=== PATIENT | male | born 1980 | race Caucasian/White ===

== ENCOUNTER → 2018-12-05 22:35 | Outpatient (CLI) | payer BC, SELFPAY ==
[2018-12-05 18:12] VITALS: BMI 26.7
[2018-12-05 23:00] LABS: Absolute Lymphocyte Count 2.02 X10^3/uL (0.83-4.51); Absolute Neutrophil Count 3.3 X10^3/uL (2.0-7.7); Basophil# 0.08 X10^3/uL; Basophil% 1.2 % (0-1); Eosinophil# 0.51 X10^3/uL; Eosinophils% 7.8 % (0-5); Hematocrit 43.2 % (40-54); Hemoglobin 13.9 g/dL (13.0-16.5); Lymphocyte # 2.02 X10^3/ul (4.0); Lymphocyte % 31.1 % (19-41); Mean Corp Hgb Conc 32.2 g/dL (32-36); Mean Corpuscular Hgb 30.2 pg (27.0-32.0); Mean Corpuscular Volume 93.7 fL (80-94); Mean Platelet Vol. 10.9 fl (6.2-12.0); Monocyte# 0.62 X10^3/uL; Monocyte% 9.5 % (0-10); NRBC Flagged by Analyzer 0 % (0-5); Neutrophil # 3.26 X10^3/uL (2.7-7.7); Neutrophil % 50.2 % (47-70); Platelet Count 234 K/mm3 (150-450); RBC Distribution Width CV 12.1 % (11.6-14.6); Red Blood Count 4.61 M/mm3 (4.6-6.2); White Blood Count 6.5 K/mm3 (4.4-11.0)
[2018-12-05 23:21] LABS: ALB/GLOB Ratio 1.1 RATIO (0.9-2.4); AST(SGOT) 28 U/L (15-37); Alanine Aminotransfer ALT/SGPT 36 U/L (16-61); Albumin, Serum 3.8 g/dL (3.2-5.0); Alkaline Phosphatase 57 U/L (45-117); Anion Gap 5 (5-15); BUN 18 mg/dL (7-18); BUN/Creat Ratio 15.7 RATIO (10-20); Calcium,Total 8.5 mg/dL (8.5-10.1); Chloride 106 mmol/L (98-107); Cholesterol 137 mg/dL (200); Creatinine, Serum 1.15 mg/dL (0.70-1.30); EST Glomerular Filtration Rate 75 mL/min (>60); Est Glom Filt Rate - Afr Amer 90 mL/min (>60); Globulin 3.5 g/dL (2.2-4.2); Glucose 100 mg/dL (74-106); High Density Lipoprotein 57 mg/dL; Potassium 4.3 mmol/L (3.5-5.1); Protein, Total 7.3 g/dL (6.4-8.2); Sodium Level 140 mmol/L (136-145); Triglycerides 72 mg/dL; Very Low Density Lipoprotein 14 mg/dL (5-40)
== END ==
PROVIDERS: Family Provider Family Medicine; PCP Family Medicine; Referring Provider Nurse Practitioner; Visit Provider Nurse Practitioner
DX: Z00.00 Encounter for general adult medical examination without abnormal findings (principal)
CPT/HCPCS: 80053; 80061; 85025

== ENCOUNTER 2019-11-18 07:33 | Day surgery (SDC) | payer BC, SELFPAY ==
[2019-11-12 13:17] VITALS: BMI 26.7
--- NOTE | 2019-11-12 14:55 | EKG12_ITS ---
Test Reason : PRE OP Blood Pressure : / mmHG Vent. Rate : 068 BPM Atrial Rate : 068 BPM P-R Int : 174 ms QRS Dur : 106 ms QT Int : 408 ms P-R-T Axes : 073 064 014 degrees QTc Int : 433 ms Normal sinus rhythm with sinus arrhythmia Normal ECG Confirmed by ARIANNA AGUILAR, DEJAH ([id number]), news copy editor DEMI MORALES ([id number]) on 11/13/2019 8:50:40 AM Referred By: Avinash Bryant Confirmed By:DEJAH KELLER MD
[2019-11-12 15:09] LABS: Hematocrit 41.3 % (40-54); Hemoglobin 13.8 g/dL (13.0-16.5); Mean Corp Hgb Conc 33.4 g/dL (32-36); Mean Corpuscular Hgb 31.1 pg (27.0-32.0); Mean Platelet Vol. 9.7 fl (6.2-12.0); Platelet Count 227 K/mm3 (150-450); RBC Distribution Width CV 11.9 % (11.6-14.6); Red Blood Count 4.44 M/mm3 (4.6-6.2); White Blood Count 6.4 K/mm3 (4.4-11.0)
[2019-11-12 15:24] LABS: Anion Gap 1 (5-15); BUN 20 mg/dL (7-18); BUN/Creat Ratio 18.2 RATIO (10-20); Calcium,Total 8.4 mg/dL (8.5-10.1); Chloride 106 mmol/L (98-107); EST Glomerular Filtration Rate 78 mL/min (>60); Est Glom Filt Rate - Afr Amer 95 mL/min (>60); Glucose 92 mg/dL (74-106); Sodium Level 139 mmol/L (136-145)
[2019-11-18] VITALS (9 sets, daily range): BP systolic 119–141; BP diastolic 65–94; PULSE 55–75; RESP 16–18; TEMP 36.2–37.5; O2SAT 92–100; BMI 26.5
[2019-11-18] MEDS: Lactated Ringers 1,000 ML 100 ML IV ×2 (08:30→10:45)
--- NOTE | 2019-11-18 08:34 | PCM.HP.BLA ---
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 Required: No Accompanied by: Is patient in pain?: No Allergies No Known Allergies Allergy (Verified 11/12/19 13:16) Medications escitalopram oxalate 10 mg tablet 10 mg PO DAILY #90 tab 12/05/18 [Rx Confirmed 11/12/19] imiquimod 5 % topical cream packet 1 applic TOPICAL .3xw 112 Days #24 ea 10/07/19 [Rx Confirmed 11/12/19] FOR[facility]LY [facility] Medical History Umbilical pain (Acute) Umbilical hernia with obstruction (Acute) Sebaceous cyst (Acute) Wellness examination (Acute) Depression with anxiety (Acute) Umbilical pain (Acute) Surgical History Salivary duct obstruction (Acute) [place] teeth removed (Acute) Family History (Updated 11/12/19 @ 13:13 by Cris Tejada) Mother Heart disease Arthritis Other Hypertension Social History (Updated 11/12/19 @ 14:[address] Avinash Bryant MD) Smoking Status: Never smoker alcohol intake: current alcohol intake frequency: a few times a week substance use type: does not use HPI HPI HPI: RITIKA BABCOCK, is a 39 M who presents to the office today for surgical consultation regarding an umbilical hernia. The patient is referred by Claudette Lama NP?C and a written copy of my surgical consult recommendations will be returned to her. 39-year-old gentleman. 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 His other life involves significant amount of physical activity. He lifts weights and runs. He is very physically active. He has had some problems with some sharp stabbing pain at the umbilicus with some radiation inferiorly. He clearly has a palpable bulge and an umbilical hernia. This likely can be attributed from his heavy weightlifting routine. At the [facility] on October 11, [address] scan of the abdomen performed. A small fat-containing umbilical hernia was identified. The appendix was not normal being prominent caliber measuring 8 mm throughout its course but there is no surrounding inflammation. Etiology to the enlarged appendix was not offered. The patient denies personal or family history of colon polyps or colon cancer or appendicitis. His mother did have cholecystitis. He has not had a change in bowel habits. He otherwise enjoys very good health. HPI HPI HPI: RITIKA BABCOCK, is a 39 M who presents to the office today for ROS General General: No weight change, appetite, fatigue, colon cancer, breast cancer or weakness HEENT HEENT: No difficulty swallowing, eye injury, eye surgery, swollen glands or hoarseness Endo Endocrine: No thyroid disease, diabetes mellitus, thyroid cancer, Hair loss, heat intolerance or cold intolerance Skin Skin: No rash or changing moles Breast Breast: No left breast lump, right breast lump, nipple discharge, breast pain, abnormal mammogram, abnormal US or breast enlargement Musc Musculoskeletal: No back problems, arthritis, rheumatoid arthritis, gout or joint pain Cardio Cardiovascular: No murmur, pacemaker, heart disease, atrial fibrillation, high blood pressure, heart attack, heart stent, palpitations, shortness of breat with exertion or chest pain Psych Psychiatric: Yes depression and anxiety; no hearing voices Resp Respiratory: No shortness of breath, No sleep apnea, No cough, No COPD, No asthma, No emphysema, No wheezing Gastro Gastrointestinal: Yes abdominal pain, No nausea or vomiting, No diarrhea, No constipation, No blood in stool, No acid reflux, No hemorrhoids, No ulcers, No gallbladder problem, No black,tarry stools Jose Hematologic: No blood thinners, No blood disorders, No bleeding, No anemia, No blood clots Neuro Neurologic: No system reviewed and no additional complaints, except as docu, No as per HPI, No abnormal walking, No abnormal hearing, No abnormal movements, No abnormal speech, No behavioral changes, No burning sensations, No confusion, No seizure-like activity, No unsteadiness, No dizziness, No localized weakness, No frequent falls, No headache(s), No lack of coordination, No loss of vision, No memory loss, No numbness, No other visual disturbances, No radiating pain, No restless legs, No sensory deficit, No fainting, No tingling, No tremor(s), No weakness, No other Exam Const General: cooperative, healthy appearing, comfortable, no acute distress Nutritional Appearance: average body habitus Orientation: alert, awake HENMA Head: normal to inspection Eyes General: appearance normal, both eyes and all related structures Chest Breast Palpation: No nipple discharge Resp Effort & Inspection: normal respiratory effort Auscultation: clear to auscultation bilaterally Cardio Rate: regular rate Rhythm: regular rhythm Heart Sounds: no murmurs GI Palpation: soft, no hepatosplenomegaly Auscultation: normal bowel sounds Other: Superior aspect the knee like is there is a moderate sized incarcerated umbilical hernia with fibrofatty tissue. Slightly tender to deep palpation. The remainder the abdomen is soft and nontender. Other: Testicles are descended without mass. Bilateral inguinal rings are closed no inguinal defects noted. Skin General: no rashes or lesions noted Neuro Cognition: normal cognition Extrem General: no calf tenderness Psych Affect: normal affect Assessment & Plan Problems 1. 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 Umbilical hernia with obstruction K42.0 Plan Incarcerated umbilical hernia. Enlargement of the appendix with otherwise undefined diagnosis. Very physically active gentleman. Had an extensive discussion with the patient his . We discussed the potential for doing a laparoscopic appendectomy and if approach cleanly then an umbilical herniorrhaphy placed in the mesh in the preperitoneal plane utilizing a Ventralex mesh. Feel that this would likely give the patient's absolute best outcome and long-term outcome. It is not clear to me that the appendix might possibly represent a slowly evolving mucocele though it does not clearly appear like that at the moment. He does not have any right lower quadrant symptoms to suggest acute appendicitis. He does not provide me with symptoms that would suggest more of a chronic appendicitis. I have personally reviewed the CT scan however and the appendix does appear to be generally enlarged. We discussed leaving the appendix and awaiting symptoms. I then discussed with him that having just repaired his umbilical hernia that potential surgeon would need to find a different area to approach it laparoscopically simply technically making the procedure more complicated. After discussion of benefits risk complications alternatives. I have elected proceed with a laparoscopic appendectomy. Is anticipated this will be proceeded in the absolute cleanness method possible. If this can be achieved and all things brought up through the trochars keeping the skin protected then anticipate likely a ventralex mesh placement in the preperitoneal plane. Then completing it with a suture repair. He is had an opportunity to ask and have questions answered. He is aware that there are no guarantees of success. He has had an opportunity to ask and have questions answered. I very much appreciate the kind opportunity of assisting with his surgical care. We will schedule and proceed at his discretion. Cc: ANASTASIA Gary M.D., F.A.C.S. Coding Level of Care Code 71193 Diagnoses Appendix disease K38.9 Umbilical hernia with obstruction K42.0 I have re-examined the patient. There are no clinical changes since date of exam. Procedure Criteria Procedure Type: Elective COVID Risk Discussion: The surgeon/proceduralist and patient have discussed in detail the risk of exposure to and/or potential harm posed by the COVID-19 virus with having a surgery/procedure at this time versus the risk of delaying the surgery/procedure. It is not possible to know either the risk of delaying the surgery or procedure or chance of getting an infection with perfect accuracy, but a joint decision was made between the patient and the surgeon/proceduralist to proceed at this time with the scheduled surgery/procedure as indicated on the consent form.
--- NOTE | 2019-11-18 09:08 | PCM.DC.GS ---
Discharge Diet: Light diet - advance as tolerated - if you have questions about your diet instructions, please talk to you doctor. Discharge Activity: May Not Drive - for 3-5 days or while taking narcotic pain medicine. May shower in (days): 1 Lifting Restrictions: 10 pounds Call your doctor if your incision/area has: Continuous Slow Oozing, Sudden Increased Bleeding, Increased Pain/ Swelling, Increased Redness, Foul Smelling Discharge Call your doctor if you observe: Fever of 101 or Higher Suture Line Care: Avoid Pulling/Pushing, Avoid Pinching/Bending Additional Dressing/Incision Instructions:: Change or remove dressing in 4 days. Leave steri-strips in place for 1 week. Allergies/Adverse Reactions: Allergies No Known Allergies Allergy (Verified 11/18/19 08:04) Medications to take at Discharge imiquimod 5 % topical cream packet 1 applic TOPICAL .3xw 112 Days #24 ea 10/07/19 DiphenhydrAMINE [Benadryl] 50 mg PO DAILY PRN PRN 11/18/19 Hydrocodone Bitart/Apap 5-325 [[place] 5MG-325MG] 1 tablet PO Q6H PRN PRN 2 Days #6 tablet 11/18/19 The following prescriptions were given: Hydrocodone Bitart/Apap 5-325 [[place] 5MG-325MG] 1 tablet PO Q6H PRN PRN 2 Days #6 tablet PRN Reason: Pain Transmission Status: Sent to [facility] Primary Care Physician: Claudette Lama NP-C [Primary Care Provider] - Test Results: Test results from this visit will be discussed in further detail at your follow-up appointment, if applicable. Please Follow Up With: Avinash Bryant MD - [phone] When: Call to make an appointment to be seen in about 10 days.
--- NOTE | 2019-11-18 09:35 | APP_PTH ---
PATIENT: RITIKA BABCOCK LOC: [facility] U#:[id number] AGE/SX: 39/M ROOM: RE11/18/[address]: Dr. Avinash Bryant MD : 1980 BED: DIS: 11/18/2019 SPEC #: [id number] RECD: 11/18/19 13:31 STATUS: WERO CAMMY #: [id number] PAGE: 11/18/19 09:[address]: Avinash Bryant DEPT: SURGICAL PATHOLOGY RECD BY: Gabriella Hinojosa ENTERED: 11/19/19 14:04 SP TYPE: APPENDIX OTHR DR: Claudette Lama, VISUAL SUPERVISOR-C Tissues: A - Appendix, NOS B - HERNIA Procedures: Surgery Specimen Level II Surgery Specimen Level III HEADER OPERATION: Laparoscopic appendectomy, umbilical hernia repair, mesh PRE-OP DIAGNOSIS: Appendix disease, umbilical hernia TISSUE SUBMITTED: A - Appendix, B - Umbilical hernia MICROSCOPIC DIAGNOSIS A. Appendix, appendectomy: Fibrous obliteration of distal appendiceal lumen. No evidence of appendicitis. B. Soft tissue of umbilical region, excision: Fibrofatty tissue consistent with hernia sac. AM:jacques 11/20/19 MICROSCOPIC DESCRIPTION Slides are reviewed. GROSS DESCRIPTION A - Received in fixative is one container labeled with the patient's name and designated appendix. The specimen consists of an appendix measuring 4 cm in length and up to 0.7 cm in diameter. No gross perforations are evident. No mass lesion is identified. The specimen is totally submitted in two cassettes. B - Received in fixative is one container labeled with the patient's name and designated hernia sac and contents. The specimen consists of multiple irregular fragments of light smith-yellow soft tissue that in aggregate measure 4.5 x 4.3 x 1 cm. Serial sections reveal homogenous yellow cut surfaces. No mass lesions are identified. Jet Dyeing Machine Operator sections are submitted in one cassette. / AM:jacques 11/19/19 TC:5 CPT: 81590, 51828
--- NOTE | 2019-11-18 10:13 | PCM.OPRPT ---
Problem List (1) Appendix disease Status: Acute (2) Umbilical hernia with obstruction Status: Acute Report of Operation Date of Procedure: 11/18/19 Pre-Operative Diagnosis: Abnormal CT imaging of the appendix. Incarcerated umbilical hernia Post-Operative Diagnosis: Same Surgery/Procedure Performed:: Laparoscopic appendectomy. Incarcerated umbilical herniorrhaphy ventralex ST hernia patch 6.4 cm diameter. Reference #[id number], lot [id number], expiry date March 21, 2021 Description of Surgical Findings:: Timeout and informed consent was obtained. 39-year-old gentleman was taken to the operating placement table underwent general endotracheal intubation anesthesia. Cefotetan 2 g were given intravenously. The abdomen sterilely prepped and draped. A curvilinear incision was made at the inferior portion of the umbilicus sharp and blunt dissection was used to identified incarcerated preperitoneal fatty tissue. This was excised with sharp dissection and electrocautery dissection. Specimen submitted. Then holding sutures of 0 Vicryl placed. The abdomen was insufflated with CO2 through a varies needle to a pressure of 10 mmHg pressure. 10 mm trocar inserted. 5 mm trochars were placed suprapubically in the low mid abdomen. Inspection revealed a mildly diffusely enlarged appendix without erythema undetermined etiology. A window was made in the mesoappendix a standard height 45 mm stapler was used to transect the appendix flush with the base. Then a vascular height stapler was used to transect the mesoappendix. The appendix was immediately placed in retrieval bag. Hemostasis was assured by dabbing with 4 x 4 gauze. The appendix was withdrawn up into the sheath and then the antiviral valve was used to expel CO2. Trochars were removed. Specimens were submitted on the back table. Gloves were changed. The preperitoneal space was opened by an incising the peritoneum at the umbilical hernia sac to completely free the preperitoneal plane. I then placed a 6.[address] mesh and secured the tails in place with 0 Nurolon. The fascia was approximated transversely with the same. Skin edges were approximated opted for Monocryl subdermal stitches. Surgical glue was applied. Steri-Strips were applied were indicated. Sponge and instrument and needle counts were reported the surgery correct. Skin sites were anesthetized with 0.5% Marcaine and a total 30 cc was used. Sponge and instrument and needle counts were reported to the surgeon be correct. Specimens appendix and incarcerated hernia material. Blood loss minimal. Drains none. The patient was taken to the recovery room in satisfactory addition without apparent complication Avinash Bryant M.D., F.A.C.S. Type of Anesthesia:: General Anesthesiologist: Keron Sainz
[2019-11-18] MEDS: HYDROcodone Bitartrate/Apap 5/325 Tablet PO (13:02)
[2019-11-18] MEDS: Tamsulosin HCl 0.4 MG Capsule PO (15:20)
== END 2019-11-18 15:38 | disposition home or self-care (01) ==
LOC: SDC 07:35 → AC 07:35
PROVIDERS: Anesthesiology; PCP Nurse Practitioner; Referring Provider Surgery; Visit Provider Surgery
PROC: 0DTJ4ZZ Resection of Appendix, Percutaneous Endoscopic Approach (ICD-10-PCS; CPT 44970; principal; 2019-11-18 09:15)
DX: K42.0 Umbilical hernia with obstruction, without gangrene (principal); K38.9 Disease of appendix, unspecified; Z11.59 Encounter for screening for other viral diseases
CPT/HCPCS: 44970; 49587; 36415; 80048; 85027; 87635; 88302; 88304; 93005; C1781; G2023; J7120; J2405; U0003

== ENCOUNTER → 2020-01-22 | Outpatient (CLI) | payer BC, SELFPAY ==
[2020-01-22 18:26] VITALS: BMI 27.3
[2020-01-23 10:46] LABS: Absolute Neutrophil Count 2.8 X10^3/uL (2.0-7.7); Basophil# 0.07 X10^3/uL; Basophil% 1.2 % (0-1); Eosinophil# 0.38 X10^3/uL; Eosinophils% 6.4 % (0-5); Hematocrit 41.6 % (40-54); Hemoglobin 13.8 g/dL (13.0-16.5); Lymphocyte % 35.2 % (19-41); Mean Corp Hgb Conc 33.2 g/dL (32-36); Mean Corpuscular Hgb 30.3 pg (27.0-32.0); Mean Corpuscular Volume 91.4 fL (80-94); Mean Platelet Vol. 10.7 fl (6.2-12.0); Monocyte# 0.61 X10^3/uL; Monocyte% 10.2 % (0-10); NRBC Flagged by Analyzer 0 % (0-5); Neutrophil # 2.81 X10^3/uL (2.7-7.7); Platelet Count 263 K/mm3 (150-450); RBC Distribution Width CV 11.9 % (11.6-14.6); RBC Distribution Width SD 39.8 fl (35.1-43.9); Red Blood Count 4.55 M/mm3 (4.6-6.2)
[2020-01-23 10:58] LABS: ALB/GLOB Ratio 1.1 RATIO (0.9-2.4); AST(SGOT) 26 U/L (15-37); Alanine Aminotransfer ALT/SGPT 34 U/L (16-61); Albumin, Serum 3.9 g/dL (3.2-5.0); Alkaline Phosphatase 59 U/L (45-117); Anion Gap 5 (5-15); BUN 18 mg/dL (7-18); BUN/Creat Ratio 15.4 RATIO (10-20); Calcium,Total 8.6 mg/dL (8.5-10.1); Chloride 105 mmol/L (98-107); Cholesterol 174 mg/dL (200); Creatinine, Serum 1.17 mg/dL (0.70-1.30); EST Glomerular Filtration Rate 73 mL/min (>60); Est Glom Filt Rate - Afr Amer 88 mL/min (>60); Globulin 3.7 g/dL (2.2-4.2); Glucose 92 mg/dL (74-106); High Density Lipoprotein 58 mg/dL; Potassium 4.1 mmol/L (3.5-5.1); Protein, Total 7.6 g/dL (6.4-8.2); Sodium Level 139 mmol/L (136-145); Triglycerides 98 mg/dL; Very Low Density Lipoprotein 20 mg/dL (5-40)
== END | disposition home or self-care (01) ==
LOC: LABSPEC 01-23 10:21
PROVIDERS: PCP Nurse Practitioner; Referring Provider Nurse Practitioner; Visit Provider Nurse Practitioner
DX: Z00.00 Encounter for general adult medical examination without abnormal findings (principal)
CPT/HCPCS: 80053; 80061; 85025

== ENCOUNTER 2020-02-25 08:00 | Outpatient (RCR) | payer BC, SELFPAY ==
[2020-01-27 13:45] VITALS: BMI 27.1
--- NOTE | 2020-02-03 11:51 | HP.PTEVAL ---
Patient's Visit Information RITIKA BABCOCK is a 39 year old M referred to Physical Therapy by Dr. Cortez Beaver DO with a diagnosis of C5-C6 Radiculitis/ C-spine spasm. Date of Evaluation: 02/03/20 Physical Therapist: PARESH Tolbert - Visit Plan Frequency: 2-3x /Week Duration: 4-6 Weeks Plan: +++Latex allergy. +++Sent pt home with chin tucks 5X/day. See if able to progress to chin tucks with extensions next visit. 2X-3X/ week for 4-6 weeks for centralization of symptoms using extension principle, postural and scapular exercises, with HEP and modalities as needed including traction if centralization does not work. - Subjective Pt reports that his R shoulder at the front part of the socket has been having pain. He can lift weights and do all the things he needs too. He only has pain when sitting at the computer. He drove to [employer] this weekend and back and had no pain. He describes the pain as intense dull pain... not throbbing and sometimes it will go down his arm a little to his elbow. If he turns his neck just right to the Left it will hurt his R shoulder and maybe R too. This has been off and on for a year and half. This time around it will not go away and it has been about 4 months now. He is R handed. He is at the computer for 8 hours a day. He is seated at a chair. He is at a regular computer. His computer is more at eye level. It is worse throughout the day. He has no N&T. It does not sleep at night and he is a side sleeper with a thick pillow. He has had neck stiffness for years. said 6 weeks of PT and then meet back with Dr Hathaway. - Pain R shoulder Pain Intensity (Out of 10): 0 Neck pain Pain Intensity (Out of 10): 1 Comment: stiffness - Objective Insurance Claims Adjuster strength: R 95# and L 100#. C-spine AROM: Rotation 100% B, Extension 75%, flexion 100%, SB R 75% and SB L 100%. UE AROM: Full AROM. Palpation: no tenderness R anterior shoulder under the acrominon. Posture: sits with corrected slightly rounder shoulders. Chin tucks 3 X 10 ( pt felt a little along his c-spine with the motion but no residual pain). Insurance Claims Adjuster strength after chin tucks on the R improved.... to 105#. Chin tucks with ext X 10... increased R shoulder pain that subsided a few minutes after he stopped the exercise. Discussed posture and hints to remind him of proper posture during his work day. 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 Rehabilitation Potential: Good - Anticipated Interventions Patient/Client Instruction: Educate patient on: Condition, Plan of Care For the Purpose of:: To decrease pain, To increase ROM, To improve nutrient delivery to tissue, To improve muscle performance and motor function, To improve ability to perform ADL's, To increase tolerance to activity/condition/position, To improve health of tissue, To improve health and function, To foster healthy habits Therapeutic Exercise to Include: Strength training, Postural training, Passive ROM, Active ROM, Dynamic Lumbar Stabilization, Scapular Strength/Stabilization For the Purpose of:: To decrease pain, To increase ROM, To increase oxygenation perfusion, To improve muscle performance and motor function, To improve ability to perform ADL's, To increase tolerance to activity/condition/position, To decrease level of supervision to perform tasks, To improve ability of physical actions for home/community/work/leisure, To improve health of tissue, To decrease soft tissue restriction, To increase flexibility/ROM IF ES: Yes Thermo therapy (hot pack): Yes Ultrasound (thermal/non thermal): Yes Intermittent cervical traction: Yes For the Purpose of:: To decrease pain, To decrease swelling/inflammation, To increase ROM, To improve nutrient delivery to tissue, To improve muscle performance and motor function Thank you for the opportunity to evaluate your patient. For Medicare and Medicare HMO plans, please review the plan of care and approve it. It will need to be FAXED BACK to us at [phone] for Medicare purposes. For Medicare only, by signing this I certify the plan of care. Please let me know if there are questions or concerns regarding this plan of care. Physician Signature: Date:
--- NOTE | 2020-02-25 08:36 | HP.PTREVAL_ITS ---
Dr. Cortez Beaver, DO, It has been my pleasure to treat RITIKA BABCOCK over the last 8 visits for C5- C6 Radiculitis/ C-spine spasm. Please see the progress note below for an update on the physical therapy plan of care! Subjective: Pt reports that the last time he had pain in his shoulder was a couple weeks ago. He still gets the neck pain but the exercises and posture do help. Objective/Function: Pt has excellent posture in the waiting room and throughout treatment. He will continue his exercises at a local gym. Plan Plan: Hold chart X 2 weeks...Pt will call in and report how he is doing or he will schedule if he is not doing well in the meantime. Goals Goal 1:: I HEP Goal Time Frame: 4-6 Weeks Goal Progress: Goal Met Goal 2:: Decrease R shoulder pain and neck stiffness to 0/10 during a work day working on his comouter Goal Time Frame: 4-6 Weeks Goal Progress: Goal Met Goal 3:: Sit with upright posture during treatment sessions Goal Time Frame: 4-6 Weeks Goal Progress: Goal Met Anticipated Interventions Patient/Client Instruction: Educate patient on: Condition, Plan of Care For the Purpose of:: To decrease pain, To increase ROM, To improve nutrient delivery to tissue, To improve muscle performance and motor function, To improve ability to perform ADL's, To increase tolerance to activity/condition/position, To improve health of tissue, To improve health and function, To foster healthy habits Therapeutic Exercise to Include: Strength training, Postural training, Passive ROM, Active ROM, Dynamic Lumbar Stabilization, Scapular Strength/Stabilization For the Purpose of:: To decrease pain, To increase ROM, To increase oxygenation perfusion, To improve muscle performance and motor function, To improve ability to perform ADL's, To increase tolerance to activity/condition/position, To decrease level of supervision to perform tasks, To improve ability of physical actions for home/community/work/leisure, To improve health of tissue, To decrease soft tissue restriction, To increase flexibility/ROM IF ES: Yes Thermo therapy (hot pack): Yes Ultrasound (thermal/non thermal): Yes Intermittent cervical traction: Yes For the Purpose of:: To decrease pain, To decrease swelling/inflammation, To increase ROM, To improve nutrient delivery to tissue, To improve muscle performance and motor function Please do not hesitate to contact me at [phone] by phone or if you have questions or concerns regarding this new plan of care! Sincerely, Pam Diaz, MPT
--- NOTE | 2020-05-12 11:19 | HP.PTDCNRP_ITS ---
RITIKA BABCOCK was seen in my office for initial evaluation on 02/03/20. The following Plan of Care was established for this patient: Initial Frequency: 2-3x /Week Initial Duration: 4-6 Weeks Patient/Client Instruction: Educate patient on: Condition, Plan of Care For the Purpose of:: To decrease pain, To increase ROM, To improve nutrient delivery to tissue, To improve muscle performance and motor function, To improve ability to perform ADL's, To increase tolerance to activity/condition/position, To improve health of tissue, To improve health and function, To foster healthy habits Therapeutic Exercise to Include: Strength training, Postural training, Passive ROM, Active ROM, Dynamic Lumbar Stabilization, Scapular Strength/Stabilization For the Purpose of:: To decrease pain, To increase ROM, To increase oxygenation perfusion, To improve muscle performance and motor function, To improve ability to perform ADL's, To increase tolerance to activity/condition/position, To decrease level of supervision to perform tasks, To improve ability of physical actions for home/community/work/leisure, To improve health of tissue, To decrease soft tissue restriction, To increase flexibility/ROM IF ES: Yes Thermo therapy (hot pack): Yes Ultrasound (thermal/non thermal): Yes Intermittent cervical traction: Yes For the Purpose of:: To decrease pain, To decrease swelling/inflammation, To increase ROM, To improve nutrient delivery to tissue, To improve muscle performance and motor function This patient was last seen in our office 02/25/20. Pertinent comments regarding their Physical therapy will appear below: CODY PT to HEP. Pt e-mailed me and reported that he was doing well and will be di scharged at this time. CODY PT At this point I will be discontinuing this patient from physical therapy. I would be happy to see this patient again in the future if found appropriate by the physician. Thank you! Pam Diaz, MPT
== END 2020-02-25 19:00 | disposition home or self-care (01) ==
LOC: PT 08:00
PROVIDERS: PCP Nurse Practitioner; Referring Provider Orthopaedic Surgery; Visit Provider Orthopaedic Surgery
DX: M54.16 Radiculopathy, lumbar region (principal); M62.838 Other muscle spasm
CPT/HCPCS: 97110; 97161

== ENCOUNTER → 2021-03-12 | Outpatient (CLI) | payer BC, SELFPAY ==
[2021-03-12 21:37] LABS: Absolute Lymphocyte Count 2.26 X10^3/uL (0.83-4.51); Absolute Neutrophil Count 3.6 X10^3/uL (2.0-7.7); Basophil# 0.08 X10^3/uL; Basophil% 1.1 % (0-1); Hematocrit 41.9 % (40-54); Hemoglobin 13.8 g/dL (13.0-16.5); Lymphocyte # 2.26 X10^3/ul (0.83-4.51); Lymphocyte % 31.6 % (19-41); Mean Corp Hgb Conc 32.9 g/dL (32-36); Mean Corpuscular Hgb 30.5 pg (27.0-32.0); Mean Corpuscular Volume 92.7 fL (80-94); Mean Platelet Vol. 10.1 fl (6.2-12.0); Monocyte# 0.72 X10^3/uL; Monocyte% 10.1 % (0-10); NRBC Flagged by Analyzer 0 % (0-5); Neutrophil # 3.58 X10^3/uL (2.7-7.7); Neutrophil % 50.1 % (47-70); Platelet Count 263 K/mm3 (150-450); RBC Distribution Width CV 12.1 % (11.6-14.6); RBC Distribution Width SD 41.2 fl (35.1-43.9); Red Blood Count 4.52 M/mm3 (4.6-6.2); White Blood Count 7.2 K/mm3 (4.4-11.0)
[2021-03-12 21:54] LABS: AST(SGOT) 30 U/L (15-37); Alanine Aminotransfer ALT/SGPT 36 U/L (16-61); Albumin, Serum 3.9 g/dL (3.2-5.0); Alkaline Phosphatase 57 U/L (45-117); Anion Gap 3 (5-15); BUN 17 mg/dL (7-18); Calcium,Total 8.8 mg/dL (8.5-10.1); Chloride 104 mmol/L (98-107); Cholesterol 166 mg/dL (200); Creatinine, Serum 1.21 mg/dL (0.70-1.30); EST Glomerular Filtration Rate 70 mL/min (>60); Est Glom Filt Rate - Afr Amer 84 mL/min (>60); Globulin 3.9 g/dL (2.2-4.2); Glucose 92 mg/dL (74-106); High Density Lipoprotein 59 mg/dL; Protein, Total 7.8 g/dL (6.4-8.2); Sodium Level 138 mmol/L (136-145); Triglycerides 105 mg/dL; Very Low Density Lipoprotein 21 mg/dL (5-40)
== END | disposition home or self-care (01) ==
PROVIDERS: PCP Nurse Practitioner; Referring Provider Nurse Practitioner; Visit Provider Nurse Practitioner
DX: Z00.00 Encounter for general adult medical examination without abnormal findings (principal)
CPT/HCPCS: 80053; 80061; 85025

== ENCOUNTER → 2022-04-22 | Outpatient (CLI) | payer BC, SELFPAY ==
--- NOTE | 2022-04-22 10:05 | RAD_ITS ---
INDICATION: Sneezed about 4 weeks ago and and hen unable to walk EXAMINATION/TECHNIQUE: X-RAY - XR Sacrum/Coccyx Min 2 Views COMPARISON: None. FINDINGS: SACRUM/COCCYX: No displaced fracture, destructive or sclerotic lesions. Note that overlapping bowel shadows may however obscure fine detail in the frontal view. SACRO-ILIAC JOINTS: The articular structures are unremarkable. SOFT TISSUES: No soft tissue swelling or gas. RAD/Sacrum-Coccyx min 2 Views IMPRESSION: Unremarkable sacro-coccygeal spine. Electronically Signed: Billy Tellez MD at 16:05 EST ,
--- NOTE | 2022-04-22 10:05 | RAD_ITS ---
INDICATION: Lower back and L sciatica pain EXAMINATION/TECHNIQUE: X-RAY - XR Spine Lumbar Min 4 Views COMPARISON: None. FINDINGS: VERTEBRAE: Preserved vertebral body height. No fracture. No spondylolisthesis. Preservation of the normal lumbar lordosis. No significant facet arthropathy. DISCS: Disc spaces are maintained. INCLUDED ABDOMEN: Included bowel gas pattern is non-obstructive. RAD/L/S Spine Min 4 Views IMPRESSION: No evidence of lumbar spinal fracture or spondylolisthesis. Electronically Signed: Billy Tellez MD at 16:04 EST ,
== END | disposition home or self-care (01) ==
LOC: RAD 10:02
PROVIDERS: PCP Nurse Practitioner; Visit Provider Nurse Practitioner
DX: M54.42 Lumbago with sciatica, left side (principal)
CPT/HCPCS: 72110; 72220

== ENCOUNTER → 2022-06-30 | Outpatient (CLI) | payer OTHER, SELFPAY ==
--- NOTE | 2022-06-30 07:19 | MRI_ITS ---
STUDY: MRI LUMBAR SPINE WITHOUT CONTRAST REASON FOR EXAM: Male, 42 years old. herniated disc lumbar spine TECHNIQUE: Standardized fat and water weighted pulse sequences were obtained in the sagittal and axial planes. COMPARISON: Lumbar spine x-rays April 22, 2022. FINDINGS: T11-T12: Only visible on the sagittal images. No posterior disc bulge or herniation. Endplate herniations seen at T11 and T12. No central spinal canal stenosis. T12-L1: Only visible on the sagittal images. No disc desiccation or height loss. Small endplate herniation pits are seen at T12 and L1. The central spinal canal stenosis. Mild straightening of the normal lordotic curvature. No anterior or retrolisthesis. No pars defect suggested. There is no substantial scoliosis. Visualized distal cord shows normal signal and contour with no intramedullary mass. Conus terminates at the L1 vertebral body level. More peripheral nerve roots are without clumping or tethering. L1-2: Moderate disc height loss with posterior disc bulge indenting the anterior thecal sac. Small, more focal disc herniation with annular fissure right subarticular region touches and posteriorly displaces the descending, right L2 nerve root with slight impingement. No significant facet arthropathy or neural foraminal narrowing. L2-3: Broad-based posterior disc herniation touches the descending L3 nerve roots. Left descending nerve root appears slightly impinged against the facet. This is slightly worsened by ligamentum flavum thickening and mild facet hypertrophy. The disc herniation show slight extension into the proximal right neural foramina resulting in mild right neural foraminal narrowing. L3-4: Slight posterior disc herniation touches without impinging the descending L4 nerve roots. There is minimal facet hypertrophy and minimal ligamentum flavum thickening. There is minimal neural foraminal narrowing. Small endplate herniation pits are noted. L4-5: Moderate disc desiccation and height loss with a broad-based posterior disc herniation and a more focal central disc herniation. This, along with ligamentum flavum thickening results in mild to moderate central spinal canal stenosis. The anterior thecal sac is indented with a concave border. Left greater than right descending L5 nerve roots are compressed. The herniation has moderate left neural foraminal zone involvement, where there is a annular fissure. This results in moderate left neural foraminal narrowing, worsened by facet hypertrophy. L5-S1: Normal discs signal with mild height loss. No disc bulge or herniation and no central spinal canal or neural foraminal narrowing. Moderate facet arthropathy L5-S1. Visualized sacrum and sacroiliac joints are within normal limits. No fracture or focal osseous lesion. Paraspinous soft tissues show no ligamentous injury. Normal visualized paraspinous soft tissue structures. MRI/Spine Lumbar (Routine) IMPRESSION: Multilevel disc herniations as above. This is most severe at L4-5 where there is moderate left neural foraminal narrowing and impingement of the descending S1 roots bilaterally, left greater than right. Slight impingement right L2 nerve at L1-2 and left L3 nerve root at L2-3. Electronically Signed: Jaylen Lane DO at 17:15 EST ,
== END | disposition home or self-care (01) ==
PROVIDERS: PCP Nurse Practitioner; Referring Provider Orthopaedic Surgery; Visit Provider Orthopaedic Surgery
DX: M51.26 Other intervertebral disc displacement, lumbar region (principal)
CPT/HCPCS: 72148

== ENCOUNTER 2022-09-07 17:42 | Outpatient (RCR) | payer OTHER, SELFPAY | END 2022-09-07 19:00 | disposition home or self-care (01) | LOC: PT 17:42 | PROVIDERS: PCP Nurse Practitioner; Referring Provider Anesthesiology Pain Medicine; Visit Provider Anesthesiology Pain Medicine | DX: M54.9 Dorsalgia, unspecified (principal); M79.606 Pain in leg, unspecified ==

== ENCOUNTER → 2023-01-04 | Outpatient (CLI) | payer OTHER, SELFPAY ==
[2023-01-04 21:20] LABS: Absolute Lymphocyte Count 2.41 X10^3/uL (0.83-4.51); Absolute Neutrophil Count 3.9 X10^3/uL (2.0-7.7); Basophil# 0.08 X10^3/uL; Basophil% 1.1 % (0-1); Eosinophil# 0.49 X10^3/uL; Eosinophils% 6.5 % (0-5); Hematocrit 43.7 % (40-54); Hemoglobin 14.2 g/dL (13.0-16.5); Lymphocyte # 2.41 X10^3/ul (0.83-4.51); Lymphocyte % 31.9 % (19-41); Mean Corp Hgb Conc 32.5 g/dL (32-36); Mean Corpuscular Hgb 30.3 pg (27.0-32.0); Mean Corpuscular Volume 93.2 fL (80-94); Mean Platelet Vol. 10.5 fl (6.2-12.0); Monocyte# 0.71 X10^3/uL; Monocyte% 9.4 % (0-10); NRBC Flagged by Analyzer 0 % (0-5); Neutrophil # 3.86 X10^3/uL (2.7-7.7); Platelet Count 267 K/mm3 (150-450); RBC Distribution Width SD 41.8 fl (35.1-43.9); Red Blood Count 4.69 M/mm3 (4.6-6.2); White Blood Count 7.6 K/mm3 (4.4-11.0)
[2023-01-04 21:53] LABS: AST(SGOT) 29 U/L (15-37); Alanine Aminotransfer ALT/SGPT 41 U/L (16-61); Alkaline Phosphatase 56 U/L (45-117); Anion Gap 3 (5-15); BUN 21 mg/dL (7-18); BUN/Creat Ratio 18.4 RATIO (10-20); Calcium,Total 8.8 mg/dL (8.5-10.1); Chloride 104 mmol/L (98-107); Cholesterol 174 mg/dL (200); Creatinine, Serum 1.14 mg/dL (0.70-1.30); EST Glomerular Filtration Rate 74 mL/min (>60); Est Glom Filt Rate - Afr Amer 90 mL/min (>60); Globulin 3.9 g/dL (2.2-4.2); Glucose 91 mg/dL (74-106); High Density Lipoprotein 65 mg/dL; Potassium 4.6 mmol/L (3.5-5.1); Protein, Total 7.9 g/dL (6.4-8.2); Sodium Level 138 mmol/L (136-145); Triglycerides 93 mg/dL; Very Low Density Lipoprotein 19 mg/dL (5-40)
== END | disposition home or self-care (01) ==
PROVIDERS: PCP Nurse Practitioner; Visit Provider Nurse Practitioner
DX: Z00.00 Encounter for general adult medical examination without abnormal findings (principal)
CPT/HCPCS: 80053; 80061; 85025

== ENCOUNTER → 2023-02-09 | Outpatient (CLI) | payer OTHER, SELFPAY ==
--- NOTE | 2023-02-09 07:20 | MRI_ITS ---
EXAM: MR CERVICAL SPINE WITHOUT INTRAVENOUS CONTRAST CLINICAL INDICATION: pain upper back/lower neck, rt shoulder pain,nki TECHNIQUE: Multiplanar and multisequence MR images of the cervical spine without intravenous contrast were performed. COMPARISON: No relevant prior studies available. FINDINGS: VERTEBRAE: Normal. Normal vertebral bodies and posterior elements. Normal alignment. Normal craniocervical junction and cervicothoracic junction. No spondylolisthesis. There is preservation of the normal cervical lordosis. SPINAL CORD: Unremarkable in signal and morphology. SOFT TISSUES: Normal. No prevertebral soft tissue swelling. LYMPH NODES: Normal. There is no cervical adenopathy. DISCS/SPINAL CANAL/NEURAL FORAMINA: C2-C3: Normal. Normal disc height and morphology. Normal spinal canal. Normal neuroforamina. C3-C4: Normal. Normal disc height and morphology. Normal spinal canal. Normal neuroforamina. C4-C5: Normal disc height and morphology. Mild disc bulging. Normal spinal canal. Narrowing of the neural foramina related to uncinate joint hypertrophy. C5-C6: Mild disc space narrowing mild left central disc protrusion with minimal impression on the thecal sac. Mild narrowing of the left neural foramen related to uncinate joint hypertrophy. C6-C7: Mild disc space narrowing. Right central mild disc protrusion without significant impingement on the thecal sac. Moderate narrowing of the right and mild narrowing of the left neural foramina related to uncinate joint hypertrophy. C7-T1: Normal. Normal disc height and morphology. Normal spinal canal. Normal neuroforamina. MRI/Spine Cervical (Routine) IMPRESSION: No evidence of disc herniation or significant spinal stenosis. Neural foraminal narrowing at C4-5, C5-6 and C6-7 related to uncinate joint hypertrophy. Electronically Signed: Loc Busch MD at 14:24 EDT ,
== END | disposition home or self-care (01) ==
PROVIDERS: PCP Nurse Practitioner; Referring Provider Orthopaedic Surgery; Visit Provider Orthopaedic Surgery
DX: M50.221 Other cervical disc displacement at C4-C5 level (principal)
CPT/HCPCS: 72141